=== PATIENT | female | born 1985 | race Caucasian/White ===

== ENCOUNTER 2019-04-03 20:55 | Emergency (ER) | payer MEDICAID ==
[~2019-04-03] VITALS: Ht 165.1 cm; Wt 76.7 kg
[2019-04-03 21:29] VITALS: BP 115/71
== END 2019-04-04 00:21 | disposition home or self-care (01) ==
LOC: ED 20:55
DX: O26.893 Other specified pregnancy related conditions, third trimester (principal); S27.818A Other injury of esophagus (thoracic part), initial encounter; T18.198A Other foreign object in esophagus causing other injury, initial encounter; Z3A.28 28 weeks gestation of pregnancy; W45.8XXA Other foreign body or object entering through skin, initial encounter; Y93.89 Activity, other specified; Y92.89 Other specified places as the place of occurrence of the external cause; Y99.8 Other external cause status